=== PATIENT | female | born 1970 | race Caucasian/White ===

== ENCOUNTER 2018-06-05 10:40 | Day surgery (SDC) | payer OTHER ==
[~2018-06-05 10:40] MED LIST: Buffered Lidocaine 0.9% SYRIN* 5 ML/SYR SYRINGE INTRADERM ONE; Dexamethasone IV* 4 MG/ML 1 ML (4 MG) IV SLOW PU ONE; Famotidine IV* 10 MG/ML 2 ML (20 mg) IV ONE
[2018-06-05] MEDS ORDERED: Famotidine IV* 10 MG/ML 2 ML (20 mg) ONE (11:44)
[2018-06-05] MEDS ORDERED: Buffered Lidocaine 0.9% SYRIN* 5 ML/SYR SYRINGE ONE (11:44)
[2018-06-05] MEDS ORDERED: fentaNYL* 50 MCG/ML 2 ML VIAL (100 MCG VIAL) ONE (11:56)
[2018-06-05] MEDS ORDERED: Midazolam* 1 MG/ML 2 ML VIAL (2 MG) ONE (11:56)
[2018-06-05] MEDS ORDERED: Cidofovir(NF) 75 MG/ML 5 ML VIAL TOPICAL ONE (12:00)
[2018-06-05] MEDS ORDERED: Dexamethasone IV* 4 MG/ML 1 ML (4 MG) ONE (12:10)
[2018-06-05] MEDS ORDERED: Sugammadex * 200 MG/2 ML VIAL IV PUSH ONE (12:16)
[2018-06-05] MEDS ORDERED: Methylene Blue 0.5 %* 50 MG/10 ML AMP IV ONE (12:51)
[2018-06-05] MEDS ORDERED: Oxymetazoline 0.05% NASAL SPR* 15 ML BTL ONE (13:04)
[2018-06-05] MEDS ORDERED: Lidocaine 4% TOPICAL* 50 ML TOP.SOLN ONE (13:04)
[2018-06-05] MEDS ORDERED: EPINEPHRINE 1 MG/ML 1 ML VIAL ONE (13:04)
[2018-06-05] MEDS ORDERED: Rocuronium* 10 MG/ML VIAL ONE (13:28)
[2018-06-05] MEDS ORDERED: Acetaminophen TAB* 325 MG ONE (15:06)
[2018-06-05] MEDS ORDERED: Naloxone* 0.4 MG/ML 1 ML VIAL IV PRN (15:23)
[2018-06-05 15:51] VITALS: BP 121/75
--- NOTE | 2018-06-06 10:55 | OP ---
DATE OF OPERATION: 06/05/18 - SDS DATE OF : 74 SURGEON: Pramod Macias MD. ANESTHESIA: Gas mask anesthesia. PRE-OP DIAGNOSIS: Right vocal cord papillomatous mass. POST-OP DIAGNOSIS: Right vocal cord papillomatous mass. OPERATIVE PROCEDURE: Microlaryngoscopy with biopsy followed by excision and then KTP laser ablation of a right vocal cord papillomatous mass. COMPLICATIONS: None. DISPOSITION: Good. SPECIMEN: Right vocal cord papilloma. DESCRIPTION OF PROCEDURE: The patient was intubated with a laser safe tube and laser safe technique was used with low oxygen and wet drapes. She was taken to take the operating room and placed in the supine position on the operating table. General anesthesia was induced, she was orotracheally intubated, turned and draped for the surgery. She had some [employer] teeth retainer on and I put an extra tooth guard on her upper teeth and the laryngoscope was inserted and suspended from the suspension system. Microscope brought in, she had a papillomatous growth that was coming off essentially her entire right vocal cord , from the arytenoid to the anterior commissure; it was obstructing her airway. I grasped it with a sweetheart, retracted and then I used curved scissor to excise most of it off the vocal cord and this was sent to pathology. I then took a KTP laser fiber in pulse mode and ablated the areas where it was attached to the vocal cord. Cottonoids with oxymetazoline and 4% lidocaine were used for hemostasis and anesthesia. The patient tolerated this procedure well, no complications, extubated uneventfully and transferred to the recovery room in stable condition. [id number]/[facility] [place] #: [id number] JOSE ANGEL
== END 2018-06-05 15:50 | disposition home or self-care (01) ==
LOC: OR 10:40
PROVIDERS: ATTEND Otolaryngology
DX: D14.1 Benign neoplasm of larynx (principal); R49.0 Dysphonia; B97.7 Papillomavirus as the cause of diseases classified elsewhere
CPT/HCPCS: 81025; 88305; 88342; A9270-GY; J0740; J1100; J2250; J3010